=== PATIENT | male | born 1980 | race Caucasian/White ===

== ENCOUNTER 2021-04-11 23:33 | Emergency (ER) | payer BC ==
[2021-04-12] MEDS ORDERED: Acetaminophen/HYDROcodone 325-5 MG Tab PO ONE (01:24)
[2021-04-12 01:50] VITALS: BP 138/93; PULSE 93
== END 2021-04-12 01:55 | disposition home or self-care (01) ==
LOC: MW.ED 23:33
DX: S63.614A Unspecified sprain of right ring finger, initial encounter (principal); W00.0XXA Fall on same level due to ice and snow, initial encounter
CPT/HCPCS: 73130; 99283; A9270; 99282